=== PATIENT | male | born 1945 | race Caucasian/White ===

== ENCOUNTER 2021-03-06 08:50 | Emergency (ER) | payer MEDICARE, OTHER ==
[~2021-03-06 08:50] MED LIST: ADALAT CC30 MG PO; ALLEGRA ALLERG180 MG PO; ASPIRIN EC81 MG PO; ATIVAN1 MG PO; BENADRYL25 MG PO; CERTAGEN1 EACH PO; COZAAR50 MG PO; FISH OIL 1,0001 EACH PO; HYDROCODONE-APA1 TAB PO; INDERAL LA160 M1 PO; MELOXICAM15 MG PO; OMEPRAZOLE 20MG20 MG PO; PERCOCET 5-3251 EACH PO; ZOCOR20 MG PO
== END 2021-03-06 10:05 | disposition home or self-care (01) ==
LOC: FER 08:50
DX: M77.12 Lateral epicondylitis, left elbow (principal); M77.8 Other enthesopathies, not elsewhere classified; E11.9 Type 2 diabetes mellitus without complications; I10 Essential (primary) hypertension; Z79.899 Other long term (current) drug therapy; Z79.84 Long term (current) use of oral hypoglycemic drugs
CPT/HCPCS: 73080; J1040